=== PATIENT | male | born 1965 | race Caucasian/White ===

== ENCOUNTER 2019-10-05 14:16 | Inpatient (IN) | payer MEDICAID ==
[~2019-10-05] VITALS: Ht 170.2 cm; Wt 76.8 kg
--- NOTE | 2019-10-05 14:20 | NUR ---
PT BIBA TO ER BED 2
[2019-10-05 14:25] VITALS: BP 167/93
--- NOTE | 2019-10-05 14:40 | NUR ---
ERMD AT BEDSIDE
[2019-10-05] MEDS ORDERED: MORPHINE SULFATE 4 MG/ML SYR IVP ONE (14:45)
--- NOTE | 2019-10-05 14:45 | NUR ---
LAB AT BEDSIDE
--- NOTE | 2019-10-05 14:54 | NUR ---
COVID SWAB COLLECTED AND GIVEN TO DIRECTOR EPIDEMIOLOGY.
--- NOTE | 2019-10-05 14:57 | NUR ---
54 Y/M BIBA FROM HOME FOR SOB X 2 DAY. PT WAS TESTED NEG FOR COVID X 3 WEEKS AGO. PT REPORTS SUBJECTIVE FEVER, DIARRHEA, VOMITING, AND PRODUCTIVE COUGH X 2 DAYS WORSE TODAY. PT REPORTS HE DID NOT HAVE DIALYSIS YESTERDAY. PT A &O .RR EVEN AND UNLABORED. PT 02 SAT 95% ON RA. PT REPORTS CHEST PAIN 10/10, DENIES NUMBNESS OR TINGLING. LUNGS CLEAR, ABD SOFT, BS ACTIVE X 4. PULSES 2+, R PEDAL PULSE 2+. L FOOT PARTIAL AMPUTATION X 2 WEEKS. PMH- DIALYSIS SHUNT TO LLQ OF ABD, DM NKDA
--- NOTE | 2019-10-05 15:00 | NUR ---
XR AT BEDSIDE.
--- NOTE | 2019-10-05 15:19 | NUR ---
PT ALEX GOLD NOTIFIED AND REQUESTING ANTIEMETICS.
[2019-10-05] MEDS ORDERED: ONDANSETRON 4 MG/2 ML VIAL IVP ONE (15:20)
[2019-10-05 15:22] LABS: ALBUMIN 1.7 g/dL (3.4-5.0); ANION GAP 23.7 (8-16); CARBON DIOXIDE 19.9 mmol/L (21-32); POTASSIUM 5.6 mmol/L (3.5-5.1); TOTAL BILIRUBIN 0.3 mg/dL (0.0-1.0)
[2019-10-05 15:24] LABS: CREATININE 14.8 mg/dL (0.6-1.3)
--- NOTE | 2019-10-05 15:28 | NUR ---
ZOFRAN GIVEN IVP PER ERMD ORDER
--- NOTE | 2019-10-05 15:28 | NUR ---
PT SATTING AT 94% RA, PT PLACED ON 2 L NC FOR COMFORT, NOT SATTING 95% WILL CONTINUE TO MONITOR.
[2019-10-05 15:38] LABS: BASOPHILS # (AUTO) 0.1 K/uL (0.00-0.22); BASOPHILS % (AUTO) 0.7 % (0.0-2.0); EOSINOPHILS % (AUTO) 0.1 % (0.0-4.0); HEMATOCRIT 27.6 % (36-52); HEMOGLOBIN 8.8 g/dL (12.0-18.0); LYMPHOCYTES # (AUTO) 0.7 K/uL (2.0-11.5); LYMPHOCYTES % (AUTO) 9.6 % (20.5-51.1); MEAN CORPUSCULAR HEMOGLOBIN 29 pg (27-31); MEAN CORPUSCULAR HGB CONC 32 g/dL (33-37); MEAN CORPUSCULAR VOLUME 88.7 fL (80-94); MONOCYTES # (AUTO) 0.8 K/uL (0.8-1.0); MONOCYTES % (AUTO) 10.8 % (1.7-9.3); NEUTROPHILS # (AUTO) 5.9 K/uL (1.8-7.7); NEUTROPHILS % (AUTO) 78.8 % (42.2-75.2); PLATELET COUNT (AUTO) 289 K/uL (140-450); RED CELL DISTRIBUTION WIDTH 16.6 % (11.6-13.7); WHITE BLOOD COUNT (AUTO) 7.5 K/uL (4.8-10.8)
--- NOTE | 2019-10-05 15:41 | NUR ---
RECEIVED CRITICAL LAB VALUE, TROP 0.094. ERMD MADE AWARE.
[2019-10-05] MEDS ORDERED: PHO667 PO (16:22)
[2019-10-05] MEDS ORDERED: CHOL2400 PO (16:22)
[2019-10-05] MEDS ORDERED: LISI-420 PO (16:22)
[2019-10-05] MEDS ORDERED: DOCU-299 PO (16:22)
[2019-10-05] MEDS ORDERED: CHOL500040 PO (16:22)
[2019-10-05] MEDS ORDERED: AZITHROMYCIN 500 MG in DEXTROSE 5% 250 ML IV ONE (16:25)
[2019-10-05] MEDS ORDERED: NACL 0.9% 1,000 ML IV SCH (16:25)
--- NOTE | 2019-10-05 17:40 | NUR ---
RECEIVED REPORT FROM PROJECT CONSTRUCTION ASSISTANT MANAGER JOI FOR CONTINUITY OF CARE. PT IS AAOX4, COOPERATIVE AND ABLE TO MAKE NEEDS KNOWN. PT WILL BE ADMITTED BY SUPERVISOR ASSEMBLY DEPARTMENT RN.
--- NOTE | 2019-10-05 17:40 | NUR ---
Patient will be admitted to care of . Admited to TELE. Will go to room 118. Belongings list completed. Report to ALIEC RIVERA.
--- NOTE | 2019-10-05 18:03 | NUR ---
SPOKE WITH PT. I SHOWED HIM HOW TO USE HIS CALL LIGHT. PT VERBALIZED UNDERSTANDING.
[2019-10-05] MEDS ORDERED: INSULIN LISPRO SLIDING SCALE 100 UNITS/ML VIAL SUBQ PRN (18:50)
[2019-10-05] MEDS ORDERED: DEXTROSE 50% 50 ML SYR IVP PRN (18:50)
--- NOTE | 2019-10-05 19:02 | NUR ---
will endorse pt to gas station operator for continuity of care. Pt in sable condition at this time.
--- NOTE | 2019-10-05 19:10 | NUR ---
RECEIVED REPORT FORM NICOLE JENKINS DAYSHIFT NURSE FOR CONTINUITY OF CARE, PT IN STABLE CONDITION.
[2019-10-05 19:30] VITALS: BP 153/84
--- NOTE | 2019-10-05 20:00 | NUR ---
PT IN BED AOX4 WITH 3 LITERS 02 VIA N/C. PT HAS A LEFT FOOT AMPUTATION OF HIS TOES AND A TOE MISSING ON RIGHT FOOT. HE HAS AREA ON HIS LOWER LEFT ABDOMEN WITH DRESSING COVERING PORT FOR PERITONEAL DIALYSIS. PT IS ANURIC AND DOESN'T PRODUCE URINE. HE IS ON STRICT I AND OS AND HAS A LAC 18 GUAGE THAT IS SALINE LOCKED AT THIS TIME. PT IS ON A WOUND BED. MRSA SWAB DONE AND ADMISSION V/S FOLLOWS: T 98.6 P 83 R 20 B/P 164/101 02% VIA N/C. ALL DROPLET PRECAUTIONS IN PLACE.
[2019-10-05] MEDS ORDERED: cefTRIAXone 1,000 MG VIAL ONE (20:28)
--- NOTE | 2019-10-05 20:30 | NUR ---
GAUDENCIO HUNG AND RUNNING ORDERED. WILL MONITOR FOR REACTION . FINGERSTICK IS 81, PT GIVEN JUICE AND SANDWICH, HE DRANK JUICE BUT DID NOT WANT TO EAT SANDWICH.
[2019-10-05] MEDS: BLOOD GLUCOSE MONITORING 1 DEV DEV FS SCH (21:00)
[2019-10-05] MEDS ORDERED: MORPHINE SULFATE 2 MG/ML SYR IVP PRN ×2 (21:35→23:40)
--- NOTE | 2019-10-05 22:00 | NUR ---
ZITHROMAX HUNG AND RUNNING ORDERED. PT C/O SEVERE PAIN IN CHEST, SPOKE WITH MD MEDINA, WHO ORDERED 2MG/1 ML WELL NITROSTAT SL PILL FOR SEVERE CHEST PAIN.
[2019-10-05] MEDS ORDERED: AZITHROMYCIN 500 MG INJ VIAL IV ONE (22:40)
[2019-10-05] MEDS: NITROGLYCERIN 0.4 MG TAB SL PRN ×2 (22:55→23:20)
--- NOTE | 2019-10-05 23:00 | NUR ---
PT WAS GIVEN SUBLINGUAL TABS X2 FOR SEVERE CHEST PAIN AFTER THE 2ND TABLET, PT SAID HE FELT SOME RELIEF BUT STILL HAD PAIN , HE WAS GIVEN IVP MORPHINE FOR MODERATE PAIN. ODILIA FROM LAB CALLED A CRITICAL TROPONIN, MD MEDINA MADE NO NEW ORDERS NOTED. AL MD MEDINA ORDERS IN COMPUTER. WOUND CULTURE COLLECTED FOR LEFT TOES. WOUND CULTURE AND NEPHRO CONSULT ORDERED FOR PT.
[2019-10-05] MEDS ORDERED: NITROGLYCERIN 0.4 MG TAB SL PRN (23:40)
[2019-10-05] MEDS ORDERED: HYDROcodone/APAP 5/325 MG 1 TAB TAB PO PRN (23:40)
[2019-10-05] MEDS ORDERED: ALBUTEROL HFA MDI 90 MCG/ACTUATION 8 GM INH PRN (23:40)
[2019-10-06] VITALS: BP 141/88
--- NOTE | 2019-10-06 | NUR ---
PT IN BED AROUSABLE TO NAME V/S FOLLOWS: T 98.2 P 87 R 20 B/P 141/88 02 99% WITH 3 LITERS VIA N/C. IV SITE IS SALINE LOCKED, PT DENIES PAIN AT THIS TIME.
[2019-10-06 00:22] LABS: THYROID STIMULATING HORMONE 1.65 uIU/mL (0.34-3.74)
[2019-10-06] MEDS ORDERED: HYDROcodone/APAP 5/325 MG 1 TAB TAB PO PRN (00:40)
[2019-10-06] MEDS ORDERED: ACETAMINOPHEN 325 MG TAB PO PRN (00:40)
[2019-10-06 04:00] VITALS: BP 162/96
--- NOTE | 2019-10-06 04:00 | NUR ---
FOOT MEASURES 12 CM BY 4 CM IN WIDTH, V/S FOLLOWS: T 97.9 P 83 R 22 B/P 162/96 02 97% WITH 2.5LITERS N/C. F/S IS 83, NO HUMALOG COVERAGE NEEDED.
[2019-10-06 06:19] LABS: BASOPHILS % (AUTO) 0.7 % (0.0-2.0); EOSINOPHILS % (AUTO) 0.1 % (0.0-4.0); HEMATOCRIT 26.4 % (36-52); HEMOGLOBIN 8.4 g/dL (12.0-18.0); LYMPHOCYTES # (AUTO) 0.5 K/uL (2.0-11.5); MEAN CORPUSCULAR HEMOGLOBIN 28 pg (27-31); MEAN CORPUSCULAR HGB CONC 32 g/dL (33-37); MEAN CORPUSCULAR VOLUME 88.7 fL (80-94); MONOCYTES # (AUTO) 0.8 K/uL (0.8-1.0); MONOCYTES % (AUTO) 11.3 % (1.7-9.3); NEUTROPHILS # (AUTO) 5.5 K/uL (1.8-7.7); NEUTROPHILS % (AUTO) 79.9 % (42.2-75.2); PLATELET COUNT (AUTO) 259 K/uL (140-450); RED BLOOD CELL COUNT(AUTO) 2.97 MIL/uL (4.20-6.10); RED CELL DISTRIBUTION WIDTH 16.3 % (11.6-13.7); WHITE BLOOD COUNT (AUTO) 6.8 K/uL (4.8-10.8)
[2019-10-06] MEDS: BLOOD GLUCOSE MONITORING 1 DEV DEV FS SCH ×2 (06:44→11:32)
[2019-10-06 06:51] LABS: ALBUMIN 1.6 g/dL (3.4-5.0); ANION GAP 25.9 (8-16); CARBON DIOXIDE 19.1 mmol/L (21-32); MAGNESIUM 2.1 mg/dL (1.8-2.4); TOTAL BILIRUBIN 0.3 mg/dL (0.0-1.0)
[2019-10-06 07:26] LABS: CREATININE 15.5 mg/dL (0.6-1.3)
[2019-10-06 07:27] LABS: PHOSPHORUS 11.8 mg/dL (2.5-4.9)
--- NOTE | 2019-10-06 07:30 | NUR ---
RECEIVED ABNORMAL LAB RESULTS FROM LAB, PAGED DR. CONDON TO REPORT LAB RESULTS. Addendum: 10/06/19 at 0735 by Nitin Hodge RN MD PHONE NUMBER WENT TO VOICEMAIL, LEFT VOICEMAIL AND WILL TRY AGAIN LATER.
[2019-10-06 08:00] VITALS: BP 155/93
--- NOTE | 2019-10-06 08:00 | NUR ---
DR. CONDON IN HOSPITAL, SPOKE REGARDING PATIENT LABS, REPORTED K 7, CO2 19.1, CA 6.4, BUN 102, PH 11.8. AWARE AND STATED THAT PATIENT WILL RECEIVE DIALYSIS TODAY.
--- NOTE | 2019-10-06 08:56 | NUR ---
DIALYSIS NURSE INFORM CARPENTER SUPERVISOR WOODEN SHIP IS STARTING. NOTED AND WILL CONTINUE TO MONITOR.
[2019-10-06] MEDS ORDERED: NON-FORMULARY ITEM (Cholecalciferol (Vitamin D3) (Vitamin D3) 5,000 U) PO SCH (09:00)
[2019-10-06] MEDS ORDERED: AZITHROMYCIN 250 MG TAB PO SCH (09:00)
[2019-10-06] MEDS ORDERED: ZINC SULF 220 MG CAP PO SCH (09:00)
[2019-10-06] MEDS ORDERED: CALCIUM ACETATE 667 MG TAB PO SCH ×2 (09:00→12:00)
[2019-10-06] MEDS ORDERED: ASPIRIN 81 MG TAB.CHEW PO SCH (09:00)
[2019-10-06] MEDS ORDERED: lisinopriL 5 MG TAB PO SCH (09:00)
[2019-10-06] MEDS ORDERED: ASCORBIC ACID 500 MG TAB PO SCH (09:00)
[2019-10-06] MEDS ORDERED: DOCUSATE SODIUM 100 MG GELCAP PO SCH (09:00)
[2019-10-06] MEDS ORDERED: METOPROLOL 25 MG TAB PO SCH (09:00)
[2019-10-06] MEDS ORDERED: VITAMIN D 400 IU TAB PO SCH (09:00)
--- NOTE | 2019-10-06 10:12 | NUR ---
DR STOVER IN HOSPITAL, MADE AWARE OF PATIENT K LEVEL 7, CO2 19.1, CA 6.4, BUN 102, PH 11.8 . SPOKE WITH PHOTO CHECKER REGARDING PATIENT DIALYSIS. PHOTO CHECKER STATES THAT PT WANTS DIALYSIS WITH HIS OWN MACHINE. PT FAMILY WILL BRING OWN MACHINE AT 11AM. DR STOVER STATES HE WILL PUT IN [place] ORDER FOR POTASSIUM. NOTED AND WILL CONTINUE TO MONITOR.
[2019-10-06] MEDS ORDERED: EPOETIN ALFA 10,000 UNITS/ML VIAL IV SCH (10:15)
--- NOTE | 2019-10-06 10:19 | NUR ---
PATIENT HAS BEEN SCREENED AND CATEGORIZED HIGH NUTRITION RISK. PATIENT WILL BE SEEN WITHIN 1-2 DAYS OF ADMISSION. 10/06/[address]
[2019-10-06] MEDS ORDERED: SODIUM ZIRCONIUM CYCLOSILICATE 10 GM POWD.PACK PO SCH (10:30)
--- NOTE | 2019-10-06 11:02 | NUR ---
DR CONDON SAW AND EXAMINED RESIDENT, MADE AWARE OF PATIENT DIALYSIS SITUATION AND THAT HE RECEIVED LOKELMA. NO NEW ORDERS AT THIS TIME.
--- NOTE | 2019-10-06 11:25 | NUR ---
SPOKE WITH WEIGHT CHECKER REGARDING PATIENT DIALYSIS MACHINE, SHE STATES SHE WILL CALL FAMILY AGAIN.
--- NOTE | 2019-10-06 11:42 | NUR ---
VERBAL CONSENT OBTAINED FROM PATIENT WITH WITNESS OF CHECKOUT SUPERVISOR. PER CHECKOUT SUPERVISOR, TO GIVE PROCRIT AFTER DIALYSIS. CHECKOUT SUPERVISOR NOW HAS PT PERITONEAL DIALYSIS MACHINE AND WILL START DIALYSIS NOW.
--- NOTE | 2019-10-06 12:31 | NUR ---
PER SCHEDULE ANALYST, DIALYSIS WILL BE COMPLETED AROUND MIDNIGHT. EPOCRIT TO BE GIVEN AFTER DIALYSIS. WILL ENDORSE TO NEXT SHIFT NURSE.
--- NOTE | 2019-10-06 13:10 | NUR ---
PATIENT STATING THAT HE WANTS TO LEAVE AGAINST MEDICAL ADVICE DUE TO LOUD VENT NOISE IN HIS ROOM. RN OFFERED TO CHANGE HIS ROOMS, BUT INFORMED PATIENT THAT PER CHARGE NURSE, ALL COVID PUIS WILL HAVE TO HAVE A VENT IN THEIR ROOM. PATIENT THEN STILL EXPRESSES HIS DESIRE TO LEAVE AMA. DR. CONDON WAS CALLED AND NOTIFIED AND STATES THAT SHE WILL TRY TALKING TO THE PATIENT.
--- NOTE | 2019-10-06 13:51 | NUR ---
PATIENT LEFT HOSPITAL AGAINST MEDICAL ADVICE. IV AND ID BAND REMOVED, LEFT WITH ALL PERSONAL BELONGINGS CELLPHONE, SHIRT PANTS, SANDAL, CANE FLUME WATCHMAN, PERITONEAL DIALYSIS MACHINE. PICKED UP BY DAUGHTER AND . TELEMETRY BOX IN ROOM.
[2019-10-06] MEDS ORDERED: ATORVASTATIN 20 MG TAB PO SCH (21:00)
[2019-10-07 13:02] LABS: T4 (THYROXINE) 4.1 ug/dL (4.5 - 12.0)
== END 2019-10-06 13:40 | disposition left against medical advice (07) | DRG 137 ==
LOC: MED 14:16 → MTU 16:36
PROC: 3E1M39Z Irrigation of Peritoneal Cavity using Dialysate, Percutaneous Approach (ICD-10-PCS; principal; 2019-10-06)
DX: U07.1 COVID-19 (principal); J12.89 Other viral pneumonia; N17.0 Acute kidney failure with tubular necrosis; I21.A1 Myocardial infarction type 2; E43 Unspecified severe protein-calorie malnutrition; J96.01 Acute respiratory failure with hypoxia; I12.0 Hypertensive chronic kidney disease with stage 5 chronic kidney disease or end stage renal disease; E11.22 Type 2 diabetes mellitus with diabetic chronic kidney disease; E83.39 Other disorders of phosphorus metabolism; M94.0 Chondrocostal junction syndrome [Tietze]; N18.6 End stage renal disease; M19.90 Unspecified osteoarthritis, unspecified site; E87.1 Hypo-osmolality and hyponatremia; F17.210 Nicotine dependence, cigarettes, uncomplicated; J91.8 Pleural effusion in other conditions classified elsewhere; D63.1 Anemia in chronic kidney disease; Z53.29 Procedure and treatment not carried out because of patient's decision for other reasons; E87.5 Hyperkalemia; Z99.2 Dependence on renal dialysis; Z68.26 Body mass index [BMI] 26.0-26.9, adult; Z79.899 Other long term (current) drug therapy; Z89.422 Acquired absence of other left toe(s); Z83.3 Family history of diabetes mellitus; Z91.14 Patient's other noncompliance with medication regimen; Z89.421 Acquired absence of other right toe(s)
CPT/HCPCS: 36415; 71045; 76604; 80053; 82150; 82948; 83036; 83605; 83615; 83690; 83735; 83880; 84100; 84436; 84443; 84484; 85025; 85379; 85651; 86140; 87040; 87070; 87081; 87186; 93005; 96374; 96375; 99285; J0456; J0696; J0885; J1644; J2270; J2405; J7030; J7060; Q0092; U0003-CS